=== PATIENT | female | born 2000 | race Two or more races ===

== ENCOUNTER 2021-06-05 19:11 | Emergency (ER) | payer OTHER ==
[~2021-06-05] VITALS: Ht 162.6 cm; Wt 63.5 kg
[2021-06-05 19:11] VITALS: BP 125/97
[2021-06-05 19:48] LABS: Basophils # (auto) 0 10 ^3/uL (0-0.2); Basophils % (auto) 0.2 % (0.0-2.0); Eosinophils # (auto) 0 10 ^3/uL (0-0.8); Eosinophils % (auto) 0.7 % (0.0-7.0); Hematocrit 39.1 % (36.0-46.0); Hemoglobin 13.2 g/dL (12.2-16.2); Lymphocytes # (auto) 2.5 10 ^3/uL (0.4-5.4); Lymphocytes % (auto) 44.1 % (10.0-50.0); Mean Corpuscular Hemoglobin 29.8 pg (28.0-32.0); Mean Corpuscular Hgb Conc. 33.7 g/dL (32.0-36.0); Mean Corpuscular Volume 88.5 fL (80.0-100.0); Monocytes # (auto) 0.5 10 ^3/uL (0-1.3); Monocytes % (auto) 8.9 % (0.0-12.0); Neutrophils # (auto) 2.6 10 ^3/uL (1.6-8.6); Neutrophils % (auto) 46.1 % (37.0-80.0); Nucleated Red Blood Cells % 0.1 %; Red Blood Cells 4.42 10^6/uL (4.0-5.20); Red Cell Distribution Width 14.3 % (11.8-14.3); White Blood Cell 5.7 10^3/uL (4.4-10.8)
[2021-06-05 20:02] LABS: Albumin 4.1 g/dL (3.4-5.0); Anion Gap 8 (5-15); Blood Urea Nitrogen 14 mg/dL (7-18); Calcium 9.2 mg/dL (8.5-10.1); Carbon Dioxide 25 mmol/L (21-32); Chloride 103 mmol/L (98-107); Glucose 95 mg/dL (74-106); Magnesium 2.5 mg/dL (1.6-2.6); Potassium 3.2 mmol/L (3.5-5.1); Sodium 136 mmol/L (136-145)
[2021-06-05 20:04] LABS: BUN/Creatinine Ratio 17.7; GFR African American 119 mL/min; GFR Non-African American 99 mL/min
[2021-06-05 20:12] LABS: Alanine Aminotransferase 25 U/L (13-56); Alkaline Phosphatase 98 U/L (45-117); Aspartate Aminotransferase 26 U/L (15-37); Bilirubin, Total 0.8 mg/dL (0.2-1.0); Total Protein 8.4 g/dL (6.4-8.2)
[2021-06-05 20:13] LABS: Beta HCG, Quantitative < 1 mlU/mL (1-3)
[2021-06-05] MEDS ORDERED: LORazepam 0.5 MG TAB PO ONE (20:45)
[2021-06-05] MEDS ORDERED: POTASSIUM CHL 20 Meq TABLET PO ONE (20:45)
== END 2021-06-06 00:54 | disposition left against medical advice (07) ==
LOC: ER 19:11
DX: F41.9 Anxiety disorder, unspecified (principal); E86.0 Dehydration; M79.602 Pain in left arm; F12.10 Cannabis abuse, uncomplicated
CPT/HCPCS: 36415; 80053; 83735; 83880; 84443; 84484; 84702; 85025; 93005; 93971